=== PATIENT | female | born 1990 | race Caucasian/White ===

== ENCOUNTER 2017-08-15 16:31 | Emergency (ER) | payer OTHER ==
[2017-08-15 17:15] LABS: #Basophils 0.1 thou/uL (0.0-0.2); #Eosinphils 0.3 thou/uL (0.0-0.7); #Lymphocytes 4.1 thou/uL (1.20-3.40); #Monocytes 0.8 thou/uL (0.11-0.59); %Basophils 0.4 % (0.0-1.0); %Monocytes 6.1 % (0.0-10.0); %Neutrophils 60.5 % (42.0-75.0); Hemoglobin 14.1 g/dL (12.0-16.0); Mean Corpuscular HGB CONC 33.4 g/dL (32.0-36.0); Mean Corpuscular Hemoglobin 26.3 pg (27.0-31.0); Mean Corpuscular Volume 78.8 fl (81.0-99.0); Mean Platelet Volume 6.3 fL (7.4-10.4); Platelet Count 365 thou/uL (130-400); RBC Distribution Width 12.4 % (11.5-14.5); Red Blood Cell (RBC) Count 5.35 mill/uL (4.20-5.40); White Blood Cell (WBC) Count 13.3 thou/uL (4.8-10.8)
[2017-08-15] MEDS ORDERED: Morphine 4 MG/ML VIAL ONE (17:27)
[2017-08-15 17:35] LABS: BHCG - Serum Negative (NEGATIVE); Pregs Control Background? CLEAR/WHITE (CLR/WHITE); Pregs Control Bar Appear? YES (CONTROL BAR)
[2017-08-15 17:41] LABS: ALT (SGPT) 28 U/L (8-55); AST (SGOT) 17 U/L (5-34); Albumin 4.4 g/dL (3.5-5.0); Alkaline Phosphatase 102 U/L (40-150); Anion Gap 9 mmol/L (10-20); BUN (Urea Nitrogen) 13 mg/dL (7.0-18.7); Bilirubin, Total 0.6 mg/dL (0.2-1.2); Calc. Creatinine Clearance 0 mL/min (70-130); Calcium 9.6 mg/dL (7.8-10.44); Carbon Dioxide 28 mmol/L (22-29); Chloride 104 mmol/L (98-107); Estimated GFR-MDRD 85; Globulin 3.5 g/dL (2.4-3.5); Glucose 91 mg/dL (70-105); Lipase 23 U/L (8-78); Protein, Total 7.9 g/dL (6.0-8.3); Sodium 137 mmol/L (136-145)
[2017-08-15 18:03] LABS: Bilirubin Negative (Negative); Blood, Urine Negative (Negative); Clarity CLEAR (Clear); Glucose, Urine (Dipstick) Negative (Negative); Leukocyte Small (Negative); Nitrite Negative (Negative); Protein, Urine (Dipstick) Negative (Neg-Trace); Specific Gravity, Urine 1.016 (1.002-1.036); Urobilinogen 0.2 mg/dL (0.2-1.0); pH, Urine 5.5 (5.0-9.0)
[2017-08-15 18:06] LABS: Bacteria/HPF Rare-Few HPF (None Seen); Hyaline Casts/LPF 0-3 HYALINE CAST LPF (0-3 Hyaline); Pathc Cast-AUWi Flag 0.29 (0-2.49); Squamous Epithelial 0-3 HPF (0-3)
[2017-08-15 18:10] LABS: Pregnancy Test - Urine (BHCG) Negative (Negative); Pregu Control Background? CLEAR/WHITE (CLR/WHITE); Pregu Control Bar Appear? YES (CONTROL BAR); Specific Gravity 1.016 (1.002-1.036)
[2017-08-15 18:22] LABS: RBC/HPF 0-3 HPF (0-3)
--- NOTE | 2017-08-15 18:29 | ULT ---
RIGHT UPPER QUADRANT ULTRASOUND: Date: 08/15/17 PROVIDED CLINICAL HISTORY: Abdominal pain. FINDINGS: Evaluation is limited by patient body habitus. There is an echogenic and coarsened appearance with metallic parenchyma compatible with fatty infiltr ation. No evidence for mass or intrahepatic biliary ductal dilatation. Common duct appears nondilated . The pancreas is not well seen. The gallbladder demonstrates no stones, wall thickening, or perichol ecystic fluid. The traffic survey technician reports a positive sonographic Rhodes's sign. Right kidney demonstrate s no hydronephrosis or mass. IMPRESSION: 1. No definite evidence for an acute abnormality. Nonspecific positive sonographic Rhodes's sign. 2. Fatty infiltration of the liver. POS: [facility]
--- NOTE | 2017-08-15 18:33 | RAD ---
ACUTE ABDOMINAL SERIES: Date: 08/15/17 PROVIDED CLINICAL HISTORY: Epigastric pain. FINDINGS: Comparison with 01/02/14. Cardiac and mediastinal silhouette within normal limits. Lungs appear clear. No pleural fluid or pneu mothorax apparent. Supine and upright abdominal radiographs demonstrate a nonspecific bowel gas pattern. No evidence for pneumoperitoneum. No radiographically apparent urinary tract calculi. IMPRESSION: No evidence for an acute process. POS: [facility]
[2017-08-15] MEDS ORDERED: Ketorolac Tromethamine 30 MG/ML VIAL ONE (20:29)
--- NOTE | 2017-08-15 21:18 | CT ---
CT OF THE ABDOMEN AND PELVIS: Date: 08/15/17 PROVIDED CLINICAL HISTORY: Epigastric pain. FINDINGS: Comparison with 09/13/13. The visualized lung bases are free of significant opacity. The solid abdominal organs demonstrate an unremarkable CT appearance. There is no bowel dilatation, inflammatory fat stranding, free fluid, or free air apparent. The appen giorgi appears normal. The osseous structures demonstrate no concerning osteoblastic or osteolytic lesions. IMPRESSION: No evidence for an acute process. POS: [facility]
== END 2017-08-15 20:49 | disposition home or self-care (01) ==
LOC: ERS 16:31
DX: R10.13 Epigastric pain (principal); E66.01 Morbid (severe) obesity due to excess calories; J45.909 Unspecified asthma, uncomplicated; K21.9 Gastro-esophageal reflux disease without esophagitis
CPT/HCPCS: 36415; 74022; 74177; 76705; 80053; 81003; 81015; 81025; 83690; 84703; 85025; 96361; 96374; 96375; J1885; J2270

== ENCOUNTER 2017-08-19 12:39 | Outpatient (CLI) | payer OTHER ==
--- NOTE | 2017-08-19 15:54 | NM ---
RADIONUCLIDE HEPATOBILIARY SCAN WITH GALLBLADDER EJECTION FRACTION: HISTORY: Right upper quadrant post prandial pain. FINDINGS: Early images show physiologic uptake of radiotracer throughout the hepatic parenchyma. Uptake is carissa dent within the gallbladder at 3 minutes and the small bowel at 6 minutes. After the administration of CCK analog, there is progressive excretion of radiotracer to the small bowel. Ejection fraction i s 48%. IMPRESSION: Normal hepatobiliary scan and gallbladder ejection fraction. POS: [facility]
== END 2017-08-19 12:40 | disposition home or self-care (01) ==
LOC: NM 12:39
PROVIDERS: ATTEND Surgery
DX: R10.11 Right upper quadrant pain (principal)
CPT/HCPCS: 78227

== ENCOUNTER 2018-01-21 12:57 | Emergency (ER) | payer OTHER ==
[2018-01-21] MEDS ORDERED: HYDROcodone/Acetaminophen 10/325 mg Tablet ONE (13:43)
--- NOTE | 2018-01-21 14:31 | RAD ---
LEFT ANKLE 3 VIEWS: Date: 01/21/18 HISTORY: Injury with pain. FINDINGS: Minimal soft tissue swelling. No evidence of fracture. IMPRESSION: No evidence of fracture. POS: [facility]
--- NOTE | 2018-01-21 14:35 | RAD ---
LEFT FORELEG RADIOGRAPHS 2 VIEWS: Date: 01/21/18 PROVIDED CLINICAL HISTORY: Left leg pain status post injury. FINDINGS: No evidence for fracture or other acute osseous abnormality. If there is persistent clinical concern, conservative management and follow-up imaging are advised. IMPRESSION: As above. POS: [facility]
== END 2018-01-21 14:00 | disposition home or self-care (01) ==
LOC: ERS 12:57
DX: S93.402A Sprain of unspecified ligament of left ankle, initial encounter (principal); J45.909 Unspecified asthma, uncomplicated; W01.0XXA Fall on same level from slipping, tripping and stumbling without subsequent striking against object, initial encounter

== ENCOUNTER 2018-06-27 06:30 | Day surgery (SDC) | payer OTHER ==
[2018-06-26 11:24] VITALS: BMI 43.9
--- NOTE | 2018-06-27 13:39 | OP ---
DATE OF PROCEDURE: 06/27/2018 PROCEDURES PERFORMED: Esophagogastroduodenoscopy with biopsy and esophageal dilation over guidewire. PREOPERATIVE DIAGNOSIS: Esophageal dysphagia. DESCRIPTION OF PROCEDURE: Informed consent was obtained from the patient. She was sedated with total intravenous anesthesia. The bite block was placed and the endoscope was advanced easily to the second portion of the duodenum and retroflexion was performed in the stomach. The esophagus did have vertical furrows and some concentric rings suggestive of eosinophilic esophagitis. There was no dominant stricture distally. Biopsies were taken from the distal and proximal esophagus to evaluate for eosinophilic esophagitis. I passed an 18-mm Savary dilator over a guidewire. There was some resistance in the more proximal esophagus. The dilator was passed throughout the esophagus. Reinsertion of the endoscope showed a small mucosal tear in the proximal esophagus and otherwise, no effect with the dilator distal to that. The stomach was normal including retroflexed views. The pylorus and first and second portions of the duodenum were normal. IMPRESSION: 1. Vertical furrows and slight concentric rings suggestive of eosinophilic esophagitis. Biopsies obtained to confirm or evaluate for eosinophilic esophagitis. The esophagus was dilated to 18 mm with a Savary dilator with a mild tear at a narrowing in the proximal esophagus. 2. Otherwise, normal esophagogastroduodenoscopy. RECOMMENDATIONS: 1. Await histopathology. 2. Continue pantoprazole 40 mg daily. 3. Follow up in GI Clinic. If she is confirmed to have eosinophilic esophagitis, we will work that further at the time of followup appointment. Job ID: [id number]
== END 2018-06-27 12:03 | disposition home or self-care (01) ==
LOC: SDC 06:30
PROVIDERS: ATTEND Internal Medicine Gastroenterology
PROC: 0D758ZZ Dilation of Esophagus, Via Natural or Artificial Opening Endoscopic (ICD-10-PCS; principal; 2018-06-27)
PROC: 0DB58ZX Excision of Esophagus, Via Natural or Artificial Opening Endoscopic, Diagnostic (ICD-10-PCS; principal; 2018-06-27)
DX: R13.19 Other dysphagia (principal)
CPT/HCPCS: 88305; 88312; 88313

== ENCOUNTER 2018-11-07 16:15 | Emergency (ER) | payer OTHER ==
[2018-11-07] MEDS ORDERED: Ondansetron PF 4 MG/2 ML Vial ONE (17:12)
[2018-11-07 17:26] LABS: #Basophils 0.1 thou/uL (0.0-0.2); #Eosinphils 0.2 thou/uL (0.0-0.7); #Lymphocytes 3.2 thou/uL (1.20-3.40); #Monocytes 0.7 thou/uL (0.11-0.59); #Neutrophils 7.3 thou/uL (1.40-6.50); %Basophils 0.7 % (0.0-1.0); %Eosinophils 1.5 % (0.0-10.0); %Lymphocytes 28.4 % (21.0-51.0); %Monocytes 6.1 % (0.0-10.0); %Neutrophils 63.4 % (42.0-75.0); Hemoglobin 12.1 g/dL (12.0-16.0); Mean Corpuscular Volume 75.9 fL (78.0-98.0); Mean Platelet Volume 6.4 fL (7.4-10.4); Platelet Count 360 thou/uL (130-400); RBC Distribution Width 12.9 % (11.5-14.5); Red Blood Cell (RBC) Count 4.83 mill/uL (4.20-5.40); White Blood Cell (WBC) Count 11.4 thou/uL (4.8-10.8)
[2018-11-07 17:35] LABS: BHCG - Serum Negative (NEGATIVE); Pregs Control Background? CLEAR/WHITE (CLR/WHITE); Pregs Control Bar Appear? YES (CONTROL BAR)
[2018-11-07 17:35] LABS: Bilirubin Negative (Negative); Blood, Urine Trace (Negative); Glucose, Urine (Dipstick) Negative (Negative); Leukocyte Small (Negative); Nitrite Negative (Negative); Protein, Urine (Dipstick) Negative (Neg-Trace); Urobilinogen 0.2 mg/dL (Less than 2)
[2018-11-07 17:36] LABS: Bacteria/HPF Rare-Few HPF (None Seen); Clarity Hazy (Clear); RBC/HPF 0-3 HPF (0-3)
[2018-11-07 17:41] LABS: ALT (SGPT) 29 U/L (8-55); AST (SGOT) 18 U/L (5-34); Albumin 4.1 g/dL (3.5-5.0); Alkaline Phosphatase 97 U/L (40-150); Anion Gap 13 mmol/L (10-20); BUN (Urea Nitrogen) 12 mg/dL (7.0-18.7); Bilirubin, Total 0.5 mg/dL (0.2-1.2); Calc. Creatinine Clearance 0 mL/min (70-130); Calcium 9.4 mg/dL (7.8-10.44); Carbon Dioxide 25 mmol/L (22-29); Chloride 106 mmol/L (98-107); Estimated GFR-MDRD 88; Globulin 3.4 g/dL (2.4-3.5); Glucose 98 mg/dL (70-105); Lipase 23 U/L (8-78); Protein, Total 7.5 g/dL (6.0-8.3); Sodium 140 mmol/L (136-145)
--- NOTE | 2018-11-07 18:38 | CT ---
CT ABDOMEN AND PELVIS WITH IV CONTRAST; 11/07/2018 PROVIDED CLINICAL HISTORY: Abdominal pain. COMPARISON: 08/15/2017 FINDINGS: The visualized lung bases are free of significant opacity. The liver, spleen, pancreas, kidneys, and adrenal glands demonstrate an unremarkable CT appearance. There is no bowel dilatation, inflammatory fat stranding, significant free fluid, or free air apparen t. The appendix is not dilated and demonstrates no surrounding inflammatory change. There is trace, likely physiologic, free pelvic fluid. The osseous structures demonstrate no concerning lytic or blastic lesions. IMPRESSION: No definite evidence for an acute process. POS: [facility]
== END 2018-11-07 19:01 | disposition home or self-care (01) ==
LOC: SCSER 16:15
DX: K52.9 Noninfective gastroenteritis and colitis, unspecified (principal); J45.909 Unspecified asthma, uncomplicated
CPT/HCPCS: 74177; 80053; 81003; 81015; 83605; 83690; 84703; 85025; 96361; 96374; J2405

== ENCOUNTER 2019-08-16 14:36 | Emergency (ER) | payer OTHER ==
[2019-08-16] MEDS ORDERED: Ketorolac Tromethamine 30 MG/ML VIAL ONE (15:09)
[2019-08-16] MEDS ORDERED: diphenhydrAMINE 50 MG/ML VIAL ONE (15:09)
[2019-08-16] MEDS ORDERED: Dexamethasone 10 MG/ML VIAL ONE (15:09)
[2019-08-16] MEDS ORDERED: Metoclopramide HCl 10 MG/2 ML VIAL ONE (15:11)
--- NOTE | 2019-08-16 15:45 | CT ---
CT OF THE BRAIN WITHOUT CONTRAST: 08/16/19 COMPARISON: None. HISTORY: Headache with ear drainage and facial twitching. TECHNIQUE: Multiple contiguous axial images were obtained in a CT of the brain without contrast. FINDINGS: The brain is normal in morphology and attenuation without focal lesions or confluent areas of infarct ion. There is no evidence of hydrocephalus, intracranial hemorrhage, or extra-axial fluid collections . The calvarium and overlying soft tissues are unremarkable. The visualized paranasal sinuses and masto id air cells are well aerated. IMPRESSION: No evidence of acute intracranial abnormality. POS: [facility]
[2019-08-16 16:31] LABS: Anion Gap 12 mmol/L (10-20); BUN (Urea Nitrogen) 7 mg/dL (7.0-18.7); Calc. Creatinine Clearance 0 mL/min (70-130); Calcium 8.7 mg/dL (7.8-10.44); Carbon Dioxide 25 mmol/L (22-29); Chloride 104 mmol/L (98-107); Estimated GFR-MDRD Greater than 90; Glucose 86 mg/dL (70-105); Magnesium 1.8 mg/dL (1.6-2.6); Potassium 3.7 mmol/L (3.5-5.1); Sodium 137 mmol/L (136-145)
== END 2019-08-16 17:30 | disposition home or self-care (01) ==
LOC: ERS 14:36
DX: G43.909 Migraine, unspecified, not intractable, without status migrainosus (principal); J45.909 Unspecified asthma, uncomplicated
CPT/HCPCS: 36415; 70450; 80048; 83735; 96374; 96375; J1100; J1200; J1885; J2765

== ENCOUNTER 2019-10-08 05:42 | Emergency (ER) | payer OTHER ==
[2019-10-08 11:51] LABS: SARS-CoV-2 MS2 Positive; SARS-CoV-2 N Gene Negative; SARS-CoV-2 S Gene Negative; SARS-CoV-2 orf1ab Negative
== END 2019-10-08 06:44 | disposition home or self-care (01) ==
LOC: ERS 05:42
DX: J39.9 Disease of upper respiratory tract, unspecified (principal); Z20.828 Contact with and (suspected) exposure to other viral communicable diseases; K21.9 Gastro-esophageal reflux disease without esophagitis
CPT/HCPCS: 87635; U0003

== ENCOUNTER → 2019-10-09 | Emergency (ER) | payer OTHER ==
[2019-10-09 16:55] LABS: SARS-CoV-2 MS2 Positive; SARS-CoV-2 N Gene Negative; SARS-CoV-2 S Gene Negative; SARS-CoV-2 orf1ab Negative
== END ==
LOC: ER/OP 09:56
DX: Z53.21 Procedure and treatment not carried out due to patient leaving prior to being seen by health care provider (principal)
CPT/HCPCS: 87635; U0003

== ENCOUNTER 2020-04-17 09:47 | Emergency (ER) | payer OTHER, SELFPAY ==
[2020-04-17 17:28] LABS: SARS-CoV-2 PCR by NAA Not Detected (NotDetected)
== END 2020-04-17 11:23 | disposition home or self-care (01) ==
LOC: ERS 09:47
DX: R05 Cough (principal); R68.83 Chills (without fever); Z20.822 Contact with and (suspected) exposure to COVID-19; J45.909 Unspecified asthma, uncomplicated; K21.9 Gastro-esophageal reflux disease without esophagitis; Z79.51 Long term (current) use of inhaled steroids
CPT/HCPCS: 87635; 99283; U0003; U0005